=== PATIENT | male | born 1960 | race Caucasian/White ===

== ENCOUNTER → 2020-01-07 14:44 | Outpatient (CLI) | payer BC, SELFPAY ==
--- NOTE | ~2020-01-07 | XR_ITS ---
EXAMINATION: XR shoulder RT min 2V DATE: 01/07/2020 14:56 INDICATION: Right shoulder pain. TECHNIQUE: 4 views of right shoulder were obtained. COMPARISON: None. FINDINGS: Bone alignment is normal. No fracture. There is mild osteoarthritis of glenohumeral joint a nd severe osteoarthritis of acromioclavicular joint. There are changes of anterior fusion procedure i n cervical spine. IMPRESSION: 1. Polyarticular osteoarthritis. Reviewed, dictated and finalized at location A. ER CONTROL TECHNICIAN
== END ==
PROVIDERS: PCP Family Medicine; Visit Provider Physician Assistant
DX: M15.9 Polyosteoarthritis, unspecified (principal)
CPT/HCPCS: 73030

== ENCOUNTER 2020-03-24 06:18 | Outpatient (CLI) | payer BC, SELFPAY ==
[2020-03-24 16:20] LABS: SARS-CoV-2 RNA PCR Negative
== END 2020-03-24 06:19 | disposition home or self-care (01) ==
LOC: ANHCOVIDDT 06:19
PROVIDERS: PCP Family Medicine; Visit Provider Orthopaedic Surgery
DX: Z01.818 Encounter for other preprocedural examination (principal); Z11.59 Encounter for screening for other viral diseases
CPT/HCPCS: 87635; C9803; U0003

== ENCOUNTER 2020-03-27 00:24 | Day surgery (SDC) | payer BC, SELFPAY ==
[2020-03-21 13:41] VITALS: BMI 30.2
--- NOTE | 2020-03-24 11:20 | HP_ITS ---
DATE OF SERVICE: ADMIT DIAGNOSIS: Rotator cuff tear, right shoulder. HISTORY OF PRESENT ILLNESS: The patient is a 60-year-old male patient of Dr. Rowe who presents today for arthroscopy for the right shoulder with open rotator cuff repair. He started having issues about November of this year. He started having pain in the shoulder, recalls no traumas or injuries to it. He recalls emptying out the house at that time cleaning up some areas, which required him do a lot of lifting. He started having more pain in the shoulder. He was initially seen in early January of this year. After initial evaluation, he was sent for an MRI scan. The MRI scan does show a full-thickness tear of the supraspinatus tendon and partial tearing of the upper border of the infraspinatus without retraction. The patient is a very healthy, active, 60-year-old. Dr. Jacome discussed the options with him. The patient would like to have this repaired and presents today for that. PAST MEDICAL HISTORY: He has a history of carpal tunnel syndrome. MEDICATIONS: His only current medication has been Naprosyn as of recently. ALLERGIES: HE HAS NO KNOWN DRUG ALLERGIES. PAST SURGICAL HISTORY: He has had his gallbladder removed in the past. He has had neck surgery as well as knee surgery in the past as well. FAMILY HISTORY: Noncontributory. SOCIAL HISTORY: He is a nonsmoker. REVIEW OF SYSTEMS: Negative. PHYSICAL EXAMINATION: GENERAL: He is a 60-year-old male, very alert, pleasant. HEENT: Grossly normal. LUNGS: Clear bilaterally. HEART: Regular rate and rhythm. MUSCULOSKELETAL: In his right shoulder, he has [id number] weakness with abductor testing, mild weakness with external rotation, both associated with moderate pain. He has intact subscap liftoff. Normal belly press. Neck range of motion is mildly decreased with extension. Normal rotation. Negative Spurling maneuver. He has active elevation to 135, external rotation to 50, internal rotation is to L3. AC joint is nontender. 2+ radial pulse in the wrist. IMAGING: X-rays demonstrate bony changes and excrescences at the greater tuberosity. No superior migration. Mild to moderate AC joint hypertrophic changes. MRI scan again shows full-thickness tear of the supraspinatus as well as partial tearing of the upper border of the infraspinatus tendon, right shoulder. IMPRESSION: The patient has a full-thickness rotator cuff tear, right shoulder and Dr. Jacome discussed the options with him. He would like to proceed with surgery. Surgical procedure as well as risks and complications were discussed. All questions were answered. We will proceed. The patient will avoid any aspirin, ibuprofen products 1 week prior to surgery. He will see Dr. Rowe for presurgical clearance. Briana I MT: Carol Ann
[2020-03-27] VITALS (10 sets, daily range): BP systolic 135–168; BP diastolic 76–94; PULSE 58–84; RESP 12–20; TEMP 35.9–36.4; O2SAT 92–100
[2020-03-27] MEDS: LACTATED RINGERS 1,000 ML 30 ML IV CONT ×2 (06:30→10:00)
--- NOTE | 2020-03-27 06:58 | WPDANESEPPF ---
Anes - Initial Pre Proc Eval Procedure: Operation Date: 03/27/20 07:30 Proposed Procedures p Right Shoulder Arthroscopy, Acromioplasty, Rotator Cuff Repair, Proceed As Indicated - Joe Jacome MD Date/Time: 03/27/20 06:58 Surgeon: Joe Jacome MD Pre Op Diagnosis: Right Shoulder Rotator Cuff Tear Patient Data Age: 60 Gender: M Height: 5 ft 8 in Weight: 91.8 kg Last Vital Signs Temp 36.4 C 03/27/20 06:12 Pulse 84 03/27/20 06:12 Resp 20 03/27/20 06:12 BP 154/88 H 03/27/20 06:12 Pulse Ox 100 03/27/20 06:12 Allergies Allergy/AdvReac Type Severity Reaction Status Date / Time Iodinated Contrast Media Allergy Unknown Hives Verified 03/27/20 06:16 iodine Allergy Unknown Hives Verified 03/27/20 06:16 Contrast Media Allergy Unknown Hives / Uncoded 03/27/20 06:16 Red Face Home Medications Medication Instructions Recorded Confirmed Type albuterol sulfate 90 mcg/actuation 1 puff INHALATION Q4H PRN 01/19/20 03/27/20 History aerosol inhaler cholestyramine-aspartame 4 gram 4 gm PO BID #60 each 01/19/20 03/27/20 Rx oral powder for susp in a packet Patient hx anesthesia problems: none Family hx anesthesia problems: none PMFSH Past Medical History Medical History Complete tear of right rotator cuff Diverticulosis Mild intermittent asthma Thalassemia Surgical History Surgical History History of arthroscopic knee surgery History of cholecystectomy History of neck surgery S/P colon resection Family History Family History Mother Family history of malignant neoplasm Family history of respiratory disorder Father Carcinoma of colon Other Hypertension Social History Social History Smoking status: Never smoker Second hand tobacco smoke exposure: Yes Alcohol intake: current Drinks per week: 3 Substance use: never Substance use type: does not use Gender identity (if verbalized by the patient): Male Anes - Eval Final PreProcedure Day of Procedure 03/27/20 06:58 Patient weight: obese Heart: regular rate and rhythm Lungs: decreased breath sounds Airway: Mallampati scale class II Neurological: alert and oriented Last oral intake: >/= 8 hours ASA classification: II Emergent: no Anesthetic plan: proceed Anesthesia type and monitoring: general ETT and standard monitoring Informed Consent: The patient's anesthetic plan and its attendant risks and benefits were discussed with the patient/family/POA. Questions were solicited and answers provided to the satisfaction of the patient/family/POA.
--- NOTE | 2020-03-27 07:18 | WPDHPUPDATE1 ---
History and Physical Update Update Date/Time: 03/27/20 07:18 History and Physical has been reviewed, including an updated exam of the patient. There are NO changes in the patient's condition. Risks, benefits, and alternatives have been discussed and questions answered. Patient agrees to proceed with procedure.
--- NOTE | 2020-03-27 07:20 | WPDHPUPDATE1 ---
History and Physical Update Update Date/Time: 03/27/20 07:20 History and Physical has been reviewed, including an updated exam of the patient. There are NO changes in the patient's condition. Risks, benefits, and alternatives have been discussed and questions answered. Patient agrees to proceed with procedure.
--- NOTE | 2020-03-27 07:42 | WPDANESPNB ---
Anes - Peripheral Nerve Block Date/Time: 03/27/20 07:42 I have discussed with the patient/family/POA the placement of a peripheral nerve block for post-operative pain management, including associated risks, benefits, complications, and side effects. Alternative methods of post-operative analgesia were detailed. Questions were solicited and answers provided to the satisfaction of the patient/family/POA. Time-Out: A pre-procedural Time-Out was completed immediately before starting the procedure and confirmed: Patient Identification, Site, Procedure, Patient Position and the Availability of Requisite Equipment. Clinical Indications: Acute post-operative pain management requested by the operative surgeon. Nerve Block Insertion Note Anes-nerve block: interscalene right Patient position: other (sitting) Skin prep: chlorhexidine Needle: 22 gauge, stimulating, insulated echogenic needle. Needle length: 50 mm Technique: nerve stimulation lost at (mA) (0.21) and ultrasound Technique comment: versed 2mg fent 100mcg Injectate: bupivacaine 0.5% with epi 5 mcg/ml (30ml) Observations: tolerated well Complications: none Procedure start time:: 728 Procedure end time:: 733
[2020-03-27] MEDS: ceFAZolin 2 GM/D5W 50 ML 2 GM/50 ML BAG IVPB (08:02)
[2020-03-27] MEDS: ceFAZolin SODIUM 1 GM VIAL IRRIGATION (09:26)
[2020-03-27] MEDS: ceFAZolin SODIUM 1 GM VIAL IV PUSH (09:37)
--- NOTE | 2020-03-27 09:44 | PM.PROC ---
Procedure Note - Detailed Date of procedure: 03/27/20 Pre-op diagnosis: Right Shoulder Rotator Cuff Tear Medium-sized full-thickness tear supraspinatus upper infraspinatus tendons right shoulder Post-op diagnosis: other (Same and extensive fraying of coracoacromial ligament and type 1 superior labral fraying.) Procedure performed: Arthroscopic debridement CA ligament and superior labrum right shoulder, mini open rotator cuff repair Description of procedure: Patient was brought to the operating room and general anesthesia was administered. He received a interscalene block preoperatively. He was given 2 g of Ancef and weight based vancomycin preoperatively. He was placed in the beach chair position and examination under anesthesia showed that he does have some restriction in motion passive elevation 140? and external rotation to about 45. He does have somewhat protracted shoulders. The neck was carefully secured in a neutral position compensating for upper thoracic kyphosis in recognition of his history of cervical fusion. The right shoulder was prepped and draped in usual fashion. All the skin was covered with Ioban accept the top portion. After injecting the joint with arthroscopic fluid a posterior portal was placed. The articular surfaces looked fine. There was maceration of the inner margin of the superior labrum. The long head of the biceps tendon looked perfect. An anterior superior portal was placed and we drug the biceps into the joint a ways and other than a patch of erythema in the portion in the inter tubercular groove, the biceps looked normal. The biceps anchor at the glenoid was normal. The subscap insertion on the lesser tuberosity was normal. Lever push maneuver showed the insertion very well with the 30 degree scope. Tearing of the supraspinatus and upper infraspinatus was noted. Some of the macerated tissue there was gently debrided. The superior labrum was debrided prep this was done through motor a shaver from anterior superior portal. The arthroscope was placed in the subacromial space. There was no significant bursitis and the full-thickness rotator cuff tear was noted. This was a tear cleanly off the greater tuberosity about 2 cm in width. The tendon quality from the bursal view medial to the tear looked very good. There was extensive maceration of the coracoacromial ligament. He did not have any significant curvature to the acromion. Within anterior superior outflow portal the CA ligament was debrided from the anterior acromion and anterolateral margin of the acromion. We did not release the insertion from the anterior edge of the acromion. The arthroscopic instruments were removed the shoulder and the remaining skin covered with Ioban in outer gloves changed. A 2 in longitudinal incision was made from the anterior superior acromion extending anterolaterally distally. Dissection was carried down to the tendinous raphe between the anterior middle heads of the deltoid muscle and a split of the tendon stress a performed approximately 4 cm in length. I elected to release about 5 mm of anterior deltoid from the acromion at this time for improved exposure and with the self-retaining retractor we had very adequate exposure. The full-thickness circular tear was identified. The under surface tearing was a little bit more extensive especially anteriorly and the mm thick bursal layer still attached was debrided. The anterior cable released the anterior margin of the anterior cable seemed to still be intact on the anterior most aspect of the greater tuberosity. The greater tuberosity footprint had no significant tendon tissue on it and was debrided with a 15 blade new scalpel to give a bleeding bone surface. 2 mm bur was made to make several 1 mm dimples in the more sclerotic areas the tuberosity and 2 mm bur holes were placed adjacent to the articular surface for passage of sutures. At this point 3 Arthrex suture tapes were passed using the [employer]
== END 2020-03-27 12:45 | disposition home or self-care (01) ==
PROVIDERS: PCP Family Medicine; Visit Provider Orthopaedic Surgery
PROC: (CPT 29805; principal; 2020-03-27 07:30)
DX: M75.101 Unspecified rotator cuff tear or rupture of right shoulder, not specified as traumatic (principal); J45.20 Mild intermittent asthma, uncomplicated; D56.9 Thalassemia, unspecified; E66.9 Obesity, unspecified; Z68.30 Body mass index [BMI] 30.0-30.9, adult
CPT/HCPCS: 23412; 29822; A4565; J0330; J0690; J1100; J2001; J2250; J2405; J2704; J3010; J3370; J7120

== ENCOUNTER 2023-03-18 01:25 | Day surgery (SDC) | payer BC, SELFPAY ==
[2023-03-05 12:52] VITALS: BMI 30.4
[2023-03-18 06:23] VITALS: BP 131/83; PULSE 78; RESP 20; TEMP 36.3; O2SAT 97
[2023-03-18] MEDS: LACTATED RINGERS 1,000 ML 150 ML IV CONT (06:39)
--- NOTE | 2023-03-18 07:14 | PM.HPGS ---
History of Present Illness History of Present Illness Consent: Risks, benefits, and alternatives have been discussed and questions answered. Patient agrees to proceed with procedure. Chief complaint: fam hx of malignant neoplasm of diagestive organs Narrative: Azar Penaloza is a 63 year old male Presents for colonoscopy. Patient's father had colon cancer. Patient reports that his current weight appetite and bowel movements are normal. He denies abdominal pain. He has had no bleeding. Patient does have a history of partial colectomy after an episode of diverticulitis in 2014. Patient also has a history of cholecystectomy. Bowel habits are normal but he does take Questran to help control diarrhea. Review of Systems Review of Systems: Review of systems noncontributory. [facility] Past Medical History Medical History Chronic diarrhea Complete tear of right rotator cuff s/p repair Diverticulosis Mild intermittent asthma Thalassemia Surgical History Surgical History History of arthroscopic knee surgery History of cholecystectomy History of neck surgery S/P colon resection Family History Family History Mother Family history of malignant neoplasm Family history of respiratory disorder Father Carcinoma of colon Other Hypertension Social History Social History Smoking status: Never smoker Second hand tobacco smoke exposure: Yes Alcohol intake: never Drinks per week: 3 Substance use: never Substance use type: does not use Living arrangements: with family Occupation/Education: retired Gender identity (if verbalized by the patient): Male Sexual Orientation (if Verbalized by the Patient): Straight or Heterosexual Spiritual care concerns: No Meds Home Medications and Allergies Home Medications Medication Instructions Recorded Confirmed Type albuterol sulfate 90 mcg/actuation 1 inh inhalation Q4H PRN shortness 02/03/23 03/05/23 Rx aerosol inhaler (Ventolin HFA) of breath or wheezing #8.5 grams cholestyramine-aspartame 4 gram 4 g PO DAILY #231 grams 02/18/23 03/05/23 Rx oral powder (Cholestyramine Light) sodium,potassium,mag sulfates 17.5 See Rx Instructions PO .COMPLEX 02/26/23 03/05/23 Rx gram-3.13 gram-1.6 gram oral soln #354 mL (Suprep Bowel Prep Kit) Adults Multivitamin 1 tab-cap PO DAILY 03/05/23 03/05/23 History Align 1 tab-cap PO DAILY 03/05/23 03/05/23 History calcium polycarbophil 625 mg 625 mg PO DAILY 03/05/23 03/05/23 History tablet (FiberCon) Allergies Allergy/AdvReac Type Severity Reaction Status Date / Time Iodinated Contrast Media Allergy Unknown Hives Verified 03/18/23 06:22 iodine Allergy Unknown Hives Verified 03/18/23 06:22 Contrast Media Allergy Unknown Hives / Uncoded 03/18/23 06:22 Red Face Vital Signs Vital Signs - 24 hr 03/18/23 06:23 Temperature 97.4 F L Pulse Rate 78 Respiratory Rate 20 Blood Pressure 131/83 Pulse Oximetry 97 Oxygen Delivery Room Air Exam Narrative: Physical exam reveals patient to be alert. Vital signs stable. HEENT exam is unremarkable. Patient is anicteric. Lungs are clear to auscultation and percussion. Heart is without murmur or extra sounds. Abdomen bowel sounds are present soft nontender with no organomegaly. Digital external rectal exam is normal. Assessment and Plan Assessment and plan (1) Family history of colon cancer in father: Code(s): Z80.0 - Family history of malignant neoplasm of digestive organs Status: Acute Assessment and Plan: Patient presents for screening colonoscopy. Family history is significant his father had colon cancer. Further recommendations be given after endoscopy.
--- NOTE | 2023-03-18 07:17 | WPDANESEPPF ---
Anes - Initial Pre Proc Eval Procedure: Operation Date: 03/18/23 07:30 Proposed Procedures p Screening Colonoscopy - Axel Cooney MD Date/Time: 03/18/23 07:17 Surgeon: Axel Cooney MD Pre Op Diagnosis: fam hx of malignant neoplasm of diagestive organs Patient Data Age: 63 Gender: M Height: 1.73 m Weight: 91.5 kg Last Vital Signs Temp 97.4 F L 03/18/23 06:23 Pulse 78 03/18/23 06:23 Resp 20 03/18/23 06:23 BP 131/83 03/18/23 06:23 Pulse Ox 97 03/18/23 06:23 O2 Del Method Room Air 03/18/23 06:23 Allergies Allergy/AdvReac Type Severity Reaction Status Date / Time Iodinated Contrast Media Allergy Unknown Hives Verified 03/18/23 06:22 iodine Allergy Unknown Hives Verified 03/18/23 06:22 Contrast Media Allergy Unknown Hives / Uncoded 03/18/23 06:22 Red Face Home Medications Medication Instructions Recorded Confirmed Type albuterol sulfate 90 mcg/actuation 1 inh inhalation Q4H PRN shortness 02/03/23 03/05/23 Rx aerosol inhaler (Ventolin HFA) of breath or wheezing #8.5 grams cholestyramine-aspartame 4 gram 4 g PO DAILY #231 grams 02/18/23 03/05/23 Rx oral powder (Cholestyramine Light) sodium,potassium,mag sulfates 17.5 See Rx Instructions PO .COMPLEX 02/26/23 03/05/23 Rx gram-3.13 gram-1.6 gram oral soln #354 mL (Suprep Bowel Prep Kit) Adults Multivitamin 1 tab-cap PO DAILY 03/05/23 03/05/23 History Align 1 tab-cap PO DAILY 03/05/23 03/05/23 History calcium polycarbophil 625 mg 625 mg PO DAILY 03/05/23 03/05/23 History tablet (FiberCon) Patient hx anesthesia problems: none Family hx anesthesia problems: none Results Review: All pre-operative results and documents have been reviewed as part of the pre-operative evaluation. COUNTS INCLUDE 234 BEDS AT THE [facility] Past Medical History Medical History Chronic diarrhea Complete tear of right rotator cuff s/p repair Diverticulosis Mild intermittent asthma Thalassemia Surgical History Surgical History History of arthroscopic knee surgery History of cholecystectomy History of neck surgery S/P colon resection Family History Family History Mother Family history of malignant neoplasm Family history of respiratory disorder Father Carcinoma of colon Other Hypertension Social History Social History Smoking status: Never smoker Second hand tobacco smoke exposure: Yes Alcohol intake: never Drinks per week: 3 Substance use: never Substance use type: does not use Living arrangements: with family Occupation/Education: retired Gender identity (if verbalized by the patient): Male Sexual Orientation (if Verbalized by the Patient): Straight or Heterosexual Spiritual care concerns: No Anes - Eval Final PreProcedure Day of Procedure 03/18/23 07:17 Patient weight: obese Heart: regular rate and rhythm Lungs: clear to auscultation Airway: Mallampati scale class II Neurological: alert and oriented Last oral intake: >/= 8 hours ASA classification: II Emergent: no Anesthetic plan: proceed Anesthesia type and monitoring: general GIVS and standard monitoring Results Review: All pre-operative results and documents have been reviewed as part of the pre-operative evaluation. Informed Consent: The patient's anesthetic plan and its attendant risks and benefits were discussed with the patient/family/POA. Questions were solicited and answers provided to the satisfaction of the patient/family/POA.
[2023-03-18 07:43] VITALS: BP 130/82; PULSE 86; RESP 19; O2SAT 100
[2023-03-18 07:53] VITALS: BP 129/84; PULSE 86; RESP 17; O2SAT 98
[2023-03-18 08:03] VITALS: BP 151/100; PULSE 78; RESP 22; O2SAT 100
== END 2023-03-18 08:09 | disposition home or self-care (01) ==
PROVIDERS: PCP Family Medicine; Visit Provider Internal Medicine Gastroenterology
PROC: 0DJD8ZZ Inspection of Lower Intestinal Tract, Via Natural or Artificial Opening Endoscopic (ICD-10-PCS; CPT 45378; principal; 2023-03-18 07:30)
DX: Z12.11 Encounter for screening for malignant neoplasm of colon (principal); Z98.0 Intestinal bypass and anastomosis status; Z90.49 Acquired absence of other specified parts of digestive tract; Z87.19 Personal history of other diseases of the digestive system; Z80.0 Family history of malignant neoplasm of digestive organs; R19.7 Diarrhea, unspecified; J45.20 Mild intermittent asthma, uncomplicated; E66.9 Obesity, unspecified; Z68.30 Body mass index [BMI] 30.0-30.9, adult; Z79.51 Long term (current) use of inhaled steroids
CPT/HCPCS: 45378; J2704; J7120

== ENCOUNTER 2023-06-06 16:43 | Emergency (ER) | payer BC, SELFPAY ==
--- NOTE | ~2023-06-06 | CT_ITS ---
EXAMINATION: CT cervical spine wo con DATE: 06/06/2023 17:35 INDICATION: cervical radiculopathy TECHNIQUE: Computed tomography (CT) of the cervical spine was performed without intravenous contrast. Automated exposure control and iterative reconstruction technique were employed. The dose-length pro duct was 518.17 mGy-cm. COMPARISON: None. FINDINGS: Vertebral Body Alignment: Intact. Mild straightening of the upper cervical spine. Craniocervical and atlantoaxial alignment: Moderate degenerative change. Alignment intact. Osseous structures/fracture: No evidence of a lytic or blastic process in the visualized spine. No e vidence of acute fracture. Uncomplicated C5-6 ACDF hardware. Cervical soft tissues: The paraspinal soft tissues planes are maintained. Degenerative changes: Degenerative changes, without severe neural foraminal or central canal narrowin g. IMPRESSION: No acute fracture or traumatic malalignment in the cervical spine. Reviewed, dictated and finalized at location K.
[2023-06-06 16:45] VITALS: BP 169/103; PULSE 88; RESP 20; TEMP 36.1; O2SAT 100
--- NOTE | 2023-06-06 17:23 | ED.NECK ---
HPI - Neck Pain/Injury General Chief Complaint: Neck Pain/Injury Stated Complaint: Neck pain Time Seen by Provider: 06/06/23 16:57 History of Present Illness HPI Narrative: 63-year-old male with a history of hyperlipidemia, right rotator cuff repair, cervical fusion in 2009 reports for evaluation for neck pain for the past 3 to 4 days. Patient states he has been doing his daily PT's exercises since he had his rotator cuff repair and cervical fusion. States approximately 4 days ago, he was abducting his left arm against a wall and felt a sharp pain in the left side of his neck. Since then, he has been having pain at the base of the skull that radiates up into the vertex of his scalp which she describes as a sharp stabbing pain, as well as pain in his scalenes. States the pain is very positional and is significantly worse when he lays down on the right side and turns his neck to the left. He reports numbness over the dorsum of his forearm that started at the onset of symptoms but resolved approximately 2 days ago. He no longer has numbness and denies weakness. He denies bladder or bowel incontinence or retention, lower extremity weakness or numbness, saddle anesthesia, fever, vomiting. He has been taking Tylenol without relief. He has an appointment with his PCP scheduled in 3 days. Related Data Home Medications Medication Instructions Recorded Confirmed Adults Multivitamin 1 tab-cap PO DAILY 03/05/23 03/05/23 Align 1 tab-cap PO DAILY 03/05/23 03/05/23 calcium polycarbophil 625 mg 625 mg PO DAILY 03/05/23 03/05/23 tablet (FiberCon) Allergies Allergy/AdvReac Type Severity Reaction Status Date / Time Iodinated Contrast Media Allergy Unknown Hives Verified 06/06/23 17:52 iodine Allergy Unknown Hives Verified 06/06/23 17:52 Contrast Media Allergy Unknown Hives / Uncoded 06/06/23 17:52 Red Face Review of Systems Review of Systems: CONSTITUTIONAL: Denies fever, chills EYES: Denies visual changes, redness, or discharge. ENT: Denies rhinorrhea, congestion, sore throat, or otalgia. CARDIOVASCULAR: Denies chest pain, palpitations, or edema. RESPIRATORY: Denies cough or dyspnea. GASTROINTESTINAL: Denies abdominal pain, nausea, vomiting, or diarrhea. GENITOURINARY: Denies dysuria or hematuria. SKIN: Denies rash or itching. MUSCULOSKELETAL: See HPI NEUROLOGIC: See HPI PSYCHIATRIC: Denies anxiety or depression. [facility] Past Medical History Medical History Chronic diarrhea Complete tear of right rotator cuff s/p repair Diverticulosis Mild intermittent asthma Thalassemia Surgical History Surgical History History of arthroscopic knee surgery History of cholecystectomy History of neck surgery S/P colon resection Family History Family History Mother Family history of malignant neoplasm Family history of respiratory disorder Father Carcinoma of colon Other Hypertension Social History Social History Smoking status: Never smoker Second hand tobacco smoke exposure: Yes Alcohol intake: never Drinks per week: 3 Substance use: never Substance use type: does not use Living arrangements: with family Occupation/Education: retired Gender identity (if verbalized by the patient): Male Sexual Orientation (if Verbalized by the Patient): Straight or Heterosexual Spiritual care concerns: No Exam Narrative: GENERAL: Well-appearing, in no acute distress. Patient resting abdomen exam bed. He is pleasant and conversational. HEAD: Normocephalic ENT: Nares clear. Mucous membranes moist. Oropharynx without tonsillar hypertrophy exudate or other lesions. Bilateral TMs are albert nonbulging. NECK: No midline cervical spinous tenderness, step-offs or deformities. Tenderness ov
[2023-06-06] MEDS: NAPROXEN 500 MG TABLET PO (17:50)
[2023-06-06] MEDS: CYCLOBENZAPRINE HCL 10 MG TABLET PO (17:51)
[2023-06-06 18:01] VITALS: BP 165/110; PULSE 83; RESP 14; O2SAT 98
== END 2023-06-06 18:34 | disposition home or self-care (01) ==
PROVIDERS: Emergency Provider Physician Assistant; PCP Family Medicine
DX: S16.1XXA Strain of muscle, fascia and tendon at neck level, initial encounter (principal); R03.0 Elevated blood-pressure reading, without diagnosis of hypertension; E78.5 Hyperlipidemia, unspecified; J45.20 Mild intermittent asthma, uncomplicated; Z98.1 Arthrodesis status; X50.9XXA Other and unspecified overexertion or strenuous movements or postures, initial encounter; Y93.B9 Activity, other involving muscle strengthening exercises
CPT/HCPCS: 72125; 99284; A9270

== ENCOUNTER 2024-03-12 09:24 | Outpatient (CLI) | payer MEDICARE, SELFPAY ==
--- NOTE | ~2024-03-12 | CT_ITS ---
EXAMINATION: CT cervical spine wo con DATE: 03/12/2024 09:39 INDICATION: Radiculopathy, cervical region. TECHNIQUE: Computed tomography (CT) of the cervical spine was performed without intravenous contrast. Automated exposure control and iterative reconstruction technique were employed. The dose-length pro duct was 515.80 mGy-cm. COMPARISON: Cervical spine CT 06/06/2023 FINDINGS: Alignment normal. Vertebral body heights are normal. There are changes of anterior fusion p rocedure at C5-C6 with healed interbody bone graft and anterior plate and screws. There is mildly dec reased disc height at C2-C3, moderately decreased disc height at C3-C4, and mildly decreased discitis at C4-C5 and C6-C7. The following disc levels are specifically discussed: C2-C3: There is mild bilateral uncovertebral joint osteoarthritis. There is moderate right and severe left facet joint osteoarthritis. There is mild left neural foraminal stenosis. There is mild central canal stenosis. C3-C4: There is severe bilateral uncovertebral joint osteoarthritis. There is moderate bilateral face t joint osteoarthritis. There is mild bilateral neural foraminal stenosis. There is mild central birgit l stenosis. There is moderate stenosis of the left lateral recess. C4-C5: There is mild bilateral uncovertebral joint osteoarthritis. There is mild right and moderate l eft facet joint osteoarthritis. There is mild bilateral neural foraminal stenosis. There is mild cent ral canal stenosis. C5-C6: There is mild bilateral uncovertebral joint hypertrophy. There is mild bilateral facet joint h ypertrophy. There is mild right neural foraminal stenosis. There is no central canal stenosis. C6-C7: There is mild bilateral uncovertebral joint osteoarthritis. There is severe right facet joint osteoarthritis. There is mild right neural foraminal stenosis. There is mild central canal stenosis. C7-T1: There is no uncovertebral joint osteoarthritis. There is mild bilateral facet joint osteoarthr itis. There is no neural foraminal stenosis. There is no central canal stenosis. IMPRESSION: 1. Moderate cervical spondylosis, stable from 06/06/2023. 2. Anterior fusion procedure at C5-C6. Reviewed, dictated and finalized at location A.
== END 2024-03-12 09:25 | disposition home or self-care (01) ==
LOC: ANHIMG 09:25
PROVIDERS: PCP Family Medicine; Visit Provider Family Medicine
DX: M43.02 Spondylolysis, cervical region (principal); Z98.1 Arthrodesis status
CPT/HCPCS: 72125